=== PATIENT | male | born 1990 | race Caucasian/White ===

== ENCOUNTER 2019-08-29 14:01 | Emergency (ER) | payer OTHER ==
[~2019-08-29] VITALS: Ht 180.3 cm; Wt 79.0 kg
[2019-08-29] MEDS ORDERED: MELATONIN (14:11)
[2019-08-29] MEDS ORDERED: ALLE60TA69 PO (14:11)
[2019-08-29] MEDS ORDERED: HYDR-3363 PO (14:11)
[2019-08-29] MEDS ORDERED: FAMOTIDINE INJ 20MG/2ML VIAL (S0028) IVP ONE (17:00)
[2019-08-29] MEDS ORDERED: methylPREDNISolone INJ 125 MG/2 ML VIAL (J2930) IV ONE (17:00)
[2019-08-29] MEDS ORDERED: PRED20TA PO (17:55)
[2019-08-29] MEDS ORDERED: FAMO40TA3 PO (17:55)
[2019-08-29 18:04] VITALS: BP 132/86
== END 2019-08-29 18:11 | disposition home or self-care (01) ==
LOC: M ED 14:01
DX: L50.9 Urticaria, unspecified (principal); Z79.899 Other long term (current) drug therapy
CPT/HCPCS: 96374; 96375; 99283; J2930